=== PATIENT | male | born 1995 | race Caucasian/White ===

== ENCOUNTER 2018-06-24 12:34 | Emergency (ER) | payer OTHER ==
[2018-06-24] MEDS ORDERED: Ciprofloxacin 500 MG TAB ONE (12:54)
== END 2018-06-24 13:08 | disposition home or self-care (01) ==
LOC: ERS 12:34 → ER/OP 13:08
DX: Z20.811 Contact with and (suspected) exposure to meningococcus (principal)
CPT/HCPCS: 99281